=== PATIENT | female | born 1950 ===

== ENCOUNTER 2017-11-20 17:43 | Emergency (ER) | payer MEDICARE, OTHER ==
[~2017-11-20] VITALS: Ht 160 cm; Wt 77.3 kg
[2017-11-20] MEDS ORDERED: HYDROCORTISONE 0.5% 30 GM OINTMENT TP ONE (19:15)
[2017-11-20] MEDS ORDERED: DiphenhydrAMINE HCL 25 MG CAPSULE PO ONE (19:15)
[2017-11-20 20:09] VITALS: BP 144/71
== END 2017-11-20 20:15 | disposition home or self-care (01) ==
LOC: EMS 17:44
DX: L25.9 Unspecified contact dermatitis, unspecified cause (principal); F17.210 Nicotine dependence, cigarettes, uncomplicated
CPT/HCPCS: 99283